=== PATIENT | female | born 1950 | race Caucasian/White ===

== ENCOUNTER → 2017-09-23 | Outpatient (CLI) | payer MEDICARE, OTHER ==
[~2017-09-23] MED LIST: CHOL10002; CITRACAL + BON1 EACH; FISH OIL 1,0001 EAC1; Hair, Skin & N1 EACH; KRILL OIL500 MG PO; LOSA25; Levothyroxine500 MCG
== END | disposition home or self-care (01) ==
LOC: LAB SHORT → PLD
DX: D22.61 Melanocytic nevi of right upper limb, including shoulder (principal); D22.72 Melanocytic nevi of left lower limb, including hip
CPT/HCPCS: 88305

== ENCOUNTER 2017-10-16 07:46 | Day surgery (SDC) | payer MEDICARE, OTHER ==
[~2017-10-16] VITALS: Ht 172.7 cm; Wt 95.5 kg
[2017-10-16] MEDS ORDERED: LOSA25 (08:02)
[2017-10-16] MEDS ORDERED: Levothyroxine500 MCG (08:02)
[2017-10-16] MEDS ORDERED: FISH OIL 1,0001 EAC1 (08:03)
[2017-10-16] MEDS ORDERED: CHOL10002 (08:03)
[2017-10-16] MEDS ORDERED: KRILL OIL500 MG PO (08:03)
[2017-10-16] MEDS ORDERED: Hair, Skin & N1 EACH (08:03)
[2017-10-16] MEDS ORDERED: CITRACAL + BON1 EACH (08:04)
== END 2017-10-16 10:09 | disposition home or self-care (01) ==
LOC: ORSCSDS 07:46
PROVIDERS: Internal Medicine Gastroenterology
PROC: 0DBH8ZX Excision of Cecum, Via Natural or Artificial Opening Endoscopic, Diagnostic (ICD-10-PCS; principal; 2017-10-16 09:00)
DX: R10.32 Left lower quadrant pain (principal); D12.0 Benign neoplasm of cecum; K57.30 Diverticulosis of large intestine without perforation or abscess without bleeding; Z86.010 Personal history of colon polyps; Z83.71 Family history of colonic polyps; E04.1 Nontoxic single thyroid nodule; I10 Essential (primary) hypertension; Z79.899 Other long term (current) drug therapy
CPT/HCPCS: 88305; J0330; J1980; J2405; J7120; Q9968

== ENCOUNTER 2018-11-17 12:36 | Day surgery (SDC) | payer MEDICARE, OTHER ==
[~2018-11-17] VITALS: Ht 172.7 cm; Wt 94.7 kg
[~2018-11-17 12:36] MED LIST changes: +ALBU90OI61 INH; +Calcium Citrat250 MG; +FISH OIL 1,0001 EAC1 PO; +Icaps Areds Fo1 EACH PO; +LEVSOD50 PO; +LOSARTAN-HCTZ1 EACH PO; +MULTI VITAMIN1 EACH PO; +NAPR220 PO; +TUMS500 MG PO; +VITAMIN D400 UNI1
--- NOTE | 2018-11-17 15:11 | NUR ---
11/17/[address] SPOKE W/PT AND HER ABOUT REFERRAL TO [facility]
== END 2018-11-17 15:10 | disposition home or self-care (01) ==
LOC: ORSCSDS 12:36
PROVIDERS: Internal Medicine Gastroenterology
PROC: 0DJD8ZZ Inspection of Lower Intestinal Tract, Via Natural or Artificial Opening Endoscopic (ICD-10-PCS; principal; 2018-11-17 13:45)
DX: Z86.010 Personal history of colon polyps (principal); K57.30 Diverticulosis of large intestine without perforation or abscess without bleeding; I10 Essential (primary) hypertension; J45.909 Unspecified asthma, uncomplicated; Z79.899 Other long term (current) drug therapy
CPT/HCPCS: J1980; J7120

== ENCOUNTER → 2020-01-06 | Outpatient (CLI) | payer MEDICARE, OTHER | END | disposition home or self-care (01) | LOC: LAB SHORT 11:39 → PLD 11:39 | DX: C44.319 Basal cell carcinoma of skin of other parts of face (principal) | CPT/HCPCS: 88305 ==

== ENCOUNTER 2022-09-12 09:26 | Day surgery (SDC) | payer MEDICARE, OTHER ==
[~2022-09-12] VITALS: Ht 170.2 cm; Wt 89.4 kg
[~2022-09-12 09:26] MED LIST changes: +ACET500 PO; +ATOR40TA PO; +ESCITALOPRAM OXA5 MG PO; +EUTHYROX50 MCG PO; -LEVSOD50 PO; -MULTI VITAMIN1 EACH PO; +MULVITA PO; +TIMOLOL MALEATE5 ML BOTHEYES
[2022-09-12] MEDS ORDERED: ACET500 (09:47)
== END 2022-09-12 11:47 | disposition home or self-care (01) ==
LOC: ORSCSDS 09:26
PROVIDERS: Internal Medicine Gastroenterology
PROC: 0DBL8ZX Excision of Transverse Colon, Via Natural or Artificial Opening Endoscopic, Diagnostic (ICD-10-PCS; principal; 2022-09-12 10:45)
PROC: 0DBK8ZX Excision of Ascending Colon, Via Natural or Artificial Opening Endoscopic, Diagnostic (ICD-10-PCS; principal; 2022-09-12 10:45)
PROC: 0DBH8ZX Excision of Cecum, Via Natural or Artificial Opening Endoscopic, Diagnostic (ICD-10-PCS; principal; 2022-09-12 10:45)
DX: Z86.010 Personal history of colon polyps (principal); Z12.11 Encounter for screening for malignant neoplasm of colon; D12.2 Benign neoplasm of ascending colon; D12.0 Benign neoplasm of cecum; D12.3 Benign neoplasm of transverse colon; K57.30 Diverticulosis of large intestine without perforation or abscess without bleeding; I10 Essential (primary) hypertension; E03.9 Hypothyroidism, unspecified; Z79.899 Other long term (current) drug therapy
CPT/HCPCS: 88305; J2704; J7120

== ENCOUNTER 2023-07-17 07:49 | Day surgery (SDC) | payer MEDICARE, OTHER ==
[~2023-07-17] VITALS: Ht 172.7 cm; Wt 94.5 kg
[~2023-07-17 07:49] MED LIST changes: +ACET500
[2023-07-17] MEDS ORDERED: ATOR20 (08:13)
[2023-07-17 10:04] VITALS: BP 120/71
== END 2023-07-17 10:06 | disposition home or self-care (01) ==
LOC: ORSCSDS 07:49
PROVIDERS: Internal Medicine Gastroenterology
PROC: 0DBH8ZX Excision of Cecum, Via Natural or Artificial Opening Endoscopic, Diagnostic (ICD-10-PCS; principal; 2023-07-17 09:00)
DX: Z86.010 Personal history of colon polyps (principal); K57.30 Diverticulosis of large intestine without perforation or abscess without bleeding; K63.5 Polyp of colon; Z79.899 Other long term (current) drug therapy
CPT/HCPCS: 88305; J2704; J7120

== ENCOUNTER 2023-07-25 11:13 | Day surgery (SDC) | payer MEDICARE, OTHER ==
[~2023-07-25] VITALS: Ht 170.2 cm; Wt 95.4 kg
[~2023-07-25 11:13] MED LIST changes: +ATOR20
--- NOTE | 2023-07-25 11:39 | NUR ---
SENSITIVE TO ANESTHESIA
--- NOTE | 2023-07-25 11:47 | NUR ---
07/25/23 1147 Gisselle Appiah AT 1137 ALEC AT 1139
[2023-07-25 12:35] VITALS: BP 132/72
--- NOTE | 2023-07-25 13:01 | NUR ---
07/25/23 1301 [address] Todd IV REMOVED INTACT. SITE WNL.
== END 2023-07-25 12:53 | disposition home or self-care (01) ==
LOC: ORSCSDS 11:13
PROVIDERS: Ophthalmology
PROC: 08RK3JZ Replacement of Left Lens with Synthetic Substitute, Percutaneous Approach (ICD-10-PCS; principal; 2023-07-25 12:30)
DX: H25.12 Age-related nuclear cataract, left eye (principal); I12.9 Hypertensive chronic kidney disease with stage 1 through stage 4 chronic kidney disease, or unspecified chronic kidney disease; N18.9 Chronic kidney disease, unspecified; E03.9 Hypothyroidism, unspecified; M19.90 Unspecified osteoarthritis, unspecified site; E66.9 Obesity, unspecified; Z68.32 Body mass index [BMI] 32.0-32.9, adult; Z79.899 Other long term (current) drug therapy
CPT/HCPCS: J2250; J3010; J3301; J7040; V2632

== ENCOUNTER 2023-08-08 09:43 | Day surgery (SDC) | payer MEDICARE, OTHER ==
[~2023-08-08] VITALS: Ht 170.2 cm; Wt 94.5 kg
--- NOTE | 2023-08-08 10:18 | NUR ---
08/08/23 1018 Gisselle Appiah AT 1014 PLESOYNET AT 1015
[2023-08-08 11:24] VITALS: BP 151/82
--- NOTE | 2023-08-08 11:42 | NUR ---
08/08/23 1142 El Todd IV REMOVED INTACT. SITE WNL.
== END 2023-08-08 11:36 | disposition home or self-care (01) ==
LOC: ORSCSDS 09:43
PROVIDERS: Ophthalmology
PROC: 08RJ3JZ Replacement of Right Lens with Synthetic Substitute, Percutaneous Approach (ICD-10-PCS; principal; 2023-08-08 11:00)
DX: H25.11 Age-related nuclear cataract, right eye (principal); Z96.1 Presence of intraocular lens; I10 Essential (primary) hypertension; E03.9 Hypothyroidism, unspecified; F32.A Depression, unspecified; Z79.899 Other long term (current) drug therapy
CPT/HCPCS: J2250; J3010; J3301; J7040; V2632

== ENCOUNTER 2025-06-07 11:15 | Day surgery (SDC) | payer MEDICARE, OTHER ==
[~2025-06-07] VITALS: Ht 170.2 cm; Wt 92.3 kg
[2025-06-07] MEDS ORDERED: CLIMARA1 EACH (11:28)
[2025-06-07 13:23] VITALS: BP 113/71
== END 2025-06-07 13:23 | disposition home or self-care (01) ==
LOC: ORSCSDS 11:15
PROVIDERS: Specialist
PROC: 0DBN8ZX Excision of Sigmoid Colon, Via Natural or Artificial Opening Endoscopic, Diagnostic (ICD-10-PCS; principal; 2025-06-07 12:30)
DX: Z12.11 Encounter for screening for malignant neoplasm of colon (principal); D12.5 Benign neoplasm of sigmoid colon; K64.8 Other hemorrhoids; K57.30 Diverticulosis of large intestine without perforation or abscess without bleeding; Z86.0101 Personal history of adenomatous and serrated colon polyps; Z83.719 Family history of colon polyps, unspecified; I10 Essential (primary) hypertension; E03.9 Hypothyroidism, unspecified; Z79.899 Other long term (current) drug therapy
CPT/HCPCS: 88305; J2704; J7120